=== PATIENT | female | born 1980 | race American Indian/Alaskan Native ===

== ENCOUNTER 2020-08-03 14:24 | Emergency (ER) | payer SELFPAY ==
[~2020-08-03] VITALS: Ht 165.1 cm; Wt 100.0 kg
[2020-08-03 14:46] VITALS: TEMP 98
[2020-08-03 15:40] LABS: BASO % 0.6 % (0.0-2.0); EOS # 0.1 (0.0-0.7); EOS % 1.5 % (0-4.0); GRAN # 2.6 (1.4-6.5); GRAN % 55.1 % (42.2-75.2); HEMATOCRIT 39.8 % (37.0-47.0); HEMOGLOBIN 13.6 g/dl (12.5-16.0); LYMPH # 1.7 (1.2-3.4); LYMPH % 35.7 % (20.0-51.0); MEAN CELL VOLUME 88 fl (80.0-100.0); MEAN CORPUSCULAR HEMOGLOBIN 30 pg (27.0-31.0); MEAN CORPUSCULAR HGB CONC 34 g/dl (33.0-37.0); MEAN PLATELET VOLUME 10.1 fl (7.4-10.4); MONO # 0.3 (0.1-0.6); MONO % 6.9 % (1.7-9.3); PLATELET COUNT 212 K/mm3 (130-400); RED BLOOD COUNT 4.55 M/mm3 (4.10-5.30); REDCELL DISTRIBUTION WIDTH-CV 13.2 % (11.5-14.5)
[2020-08-03 15:49] LABS: ALANINE AMINOTRANSFERASE 32 U/L (4-34); ALBUMIN 4.3 gm/dL (3.5-5.0); ALKALINE PHOSPHATASE 68 U/L (50-136); ANION GAP 9 mmol/L (7-16); AST,SGOT 32 U/L (15-37); BILIRUBIN,TOTAL 0.1 mg/dL (0.0-1.0); BLOOD UREA NITROGEN 14 mg/dL (7-17); CALCIUM 8.9 mg/dL (8.4-10.2); CARBON DIOXIDE 27 mmol/L (22-30); CHLORIDE 102 mmol/L (98-107); CREATININE, serum 0.61 (0.52-1.25); GLUCOSE 112 mg/dL (74-106); POTASSIUM 3.1 mmol/L (3.4-5.0); SODIUM 138 mmol/L (137-145)
[2020-08-03 15:55] LABS: COLLECTION METHOD CLEAN CATCH
[2020-08-03 16:01] LABS: TROPONIN-I < 0.012 ng/mL (0.000-0.035)
[2020-08-03 16:39] LABS: AMORPHOUS CRYSTAL Present /uL; MUCOUS Present /lpf; PH 6 (5-8); SQUAMOUS EPITHELIAL 0-2 /hpf; URINE APPEARANCE Turbid; URINE BACTERIA Rare /hpf; URINE BILIRUBIN Negative (NEGATIVE); URINE BLOOD 1+ (NEGATIVE); URINE GLUCOSE Negative (NEGATIVE); URINE KETONE Negative (NEGATIVE); URINE LEUKOCYTE ESTERASE Negative (NEGATIVE); URINE NITRATE Negative (NEGATIVE); URINE PROTEIN(semi-quant) 2+ (NEGATIVE); URINE UROBILINOGEN Negative (NEGATIVE)
[2020-08-03 16:46] LABS: URINE COLOR OTHER
[2020-08-03] MEDS ORDERED: VASOTEC20 MG PO (17:30)
[2020-08-03 17:55] VITALS: BP 143/89; PULSE 61
== END 2020-08-03 17:57 | disposition home or self-care (01) ==
LOC: COL.ER 14:24
PROVIDERS: Emergency Medicine
DX: R42 Dizziness and giddiness (principal); I10 Essential (primary) hypertension
CPT/HCPCS: J7030; Q9967

== ENCOUNTER 2021-03-23 13:32 | Emergency (ER) | payer SELFPAY ==
[~2021-03-23] VITALS: Ht 165.1 cm; Wt 90.0 kg
[~2021-03-23 13:32] MED LIST: VASOTEC20 MG PO
[2021-03-23 14:18] VITALS: TEMP 98.3
[2021-03-23] MEDS ORDERED: ANUSOL-HC SUPPO25 MG RC (16:31)
[2021-03-23 17:22] VITALS: BP 120/70; PULSE 62
== END 2021-03-23 17:22 | disposition home or self-care (01) ==
LOC: COL.ER 13:32
DX: K64.4 Residual hemorrhoidal skin tags (principal)

== ENCOUNTER → 2021-08-19 | Outpatient (CLI) | payer OTHER ==
[~2021-08-19] MED LIST changes: +ANUSOL-HC SUPPO25 MG RC
== END ==
LOC: COL.RAD 07:19
DX: R07.9 Chest pain, unspecified (principal); R42 Dizziness and giddiness; R11.0 Nausea; R79.1 Abnormal coagulation profile
CPT/HCPCS: Q9967

== ENCOUNTER 2021-12-07 14:37 | Emergency (ER) | payer OTHER ==
[~2021-12-07] VITALS: Ht 169 cm; Wt 94.5 kg
[2021-12-07 14:39] VITALS: TEMP 98.8
[2021-12-07 16:01] LABS: BASO % 0.3 % (0.0-2.0); EOS % 0.2 % (0.0-4.0); GRAN # 8.1 K/mm3 (1.4-6.5); GRAN % 84.9 % (42.2-75.2); HEMATOCRIT 39.1 % (37.0-47.0); HEMOGLOBIN 13.3 g/dl (12.5-16.0); LYMPH # 0.7 K/mm3 (1.2-3.4); LYMPH % 7.1 % (20.0-51.0); MEAN CELL VOLUME 86 fl (80.0-100.0); MEAN CORPUSCULAR HEMOGLOBIN 29 pg (27-31); MEAN CORPUSCULAR HGB CONC 34 g/dl (33.0-37.0); MEAN PLATELET VOLUME 9.9 fl (7.4-10.4); MONO # 0.7 K/mm3 (0.1-0.6); MONO % 7.2 % (1.7-9.3); PLATELET COUNT 194 K/mm3 (130-400); RED BLOOD COUNT 4.55 M/mm3 (4.10-5.30); REDCELL DISTRIBUTION WIDTH-CV 12.5 % (11.5-14.5)
[2021-12-07 16:15] LABS: ALBUMIN 4.1 gm/dL (3.5-5.0); BILIRUBIN,TOTAL 0.7 mg/dL (0.2-1.2); CALCIUM 9.3 mg/dL (8.4-10.2); CREATININE, serum 0.81 mg/dL (0.57-1.11); POTASSIUM 3.1 mmol/L (3.5-4.5); TOTAL PROTEIN 7.6 gm/dL (6.2-8.1)
[2021-12-07 17:21] VITALS: BP 123/82; PULSE 65
== END 2021-12-07 17:23 | disposition home or self-care (01) ==
LOC: COL.ER 14:37
PROVIDERS: Family Medicine
DX: G89.18 Other acute postprocedural pain (principal); K13.79 Other lesions of oral mucosa

== ENCOUNTER → 2022-07-12 | Outpatient (CLI) | payer OTHER | LOC: MC.RAD 10:00 | DX: N60.02 Solitary cyst of left breast (principal); N63.10 Unspecified lump in the right breast, unspecified quadrant ==

== ENCOUNTER → 2023-06-28 | Outpatient (CLI) | payer OTHER ==
[~2023-06-28] MED LIST changes: +PEPCID 20MG TAB20 MG PO; +PREDNISONE20 MG PO
== END ==
LOC: MC.RAD 12:47
DX: Z12.31 Encounter for screening mammogram for malignant neoplasm of breast (principal)